=== PATIENT | female | born 1940 | race Caucasian/White ===

== ENCOUNTER → 2016-06-01 | Outpatient (CLI) | payer MEDICARE, OTHER ==
[~2016-06-01] MED LIST: CALCTAB80 PO; MULTCAP PO; SODITAB PO; VITA10007 PO; VITA60003 PO
== END ==
LOC: CPRE 10:53
PROVIDERS: ATTEND Optometrist Occupational Vision
DX: Z01.812 Encounter for preprocedural laboratory examination (principal); H25.812 Combined forms of age-related cataract, left eye

== ENCOUNTER → 2016-06-10 | Day surgery (SDC) | payer MEDICARE, OTHER ==
[~2016-06-10] VITALS: Ht 152.4 cm; Wt 80.8 kg
[~2016-06-10] MED LIST changes: +CYCLOPENTOLATE HCL 1% OPHT SOLN 2 ML BTL ONE; +FLURBIPROFEN 0.03% OPHT SOLN 2.5 ML BTL ONE; +LIDOCAINE HCL 1% 20 ML VIAL ONE; +LIDOCAINE HCL 1% 30 ML VIAL ONE; +LIDOCAINE HCL 2% JELLY 5 ML SYRINGE ONE; +LIDOCAINE HCL 2% JELLY 5 ML SYRINGE TOPICAL ONE; +MIDAZOLAM HCL 2 MG/2 ML VIAL ONE; +PHENYLEPHRINE HCL 10% OPTH SOLN 5 ML BTL ONE; +PROPARACAINE HCL 0.5% OPHT SOLN 15 ML BTL LEFT EYE ONE; +PROPARACAINE HCL 0.5% OPHT SOLN 15 ML BTL ONE; +SODIUM CHLORID 0.9% 500 ML INJ 500 ML ONE; +TROPICAMIDE 1% OPHT SOLN 15 ML BTL ONE
[2016-06-10 06:23] VITALS: BP 184/94; PULSE 64; RESP 16; TEMP 98.2; O2SAT 98
[2016-06-10] MEDS: TROPICAMIDE 1% OPHT SOLN 15 ML BTL LEFT EYE SCH ×4 (06:30→06:45)
[2016-06-10] MEDS: FLURBIPROFEN 0.03% OPHT SOLN 2.5 ML BTL LEFT EYE SCH ×4 (06:30→06:45)
[2016-06-10] MEDS: PHENYLEPHRINE HCL 10% OPTH SOLN 5 ML BTL LEFT EYE SCH ×4 (06:30→06:45)
[2016-06-10] MEDS: CYCLOPENTOLATE HCL 1% OPHT SOLN 2 ML BTL LEFT EYE SCH ×4 (06:30→06:45)
[2016-06-10] MEDS: TOBRAMYCIN/DEXAMETHASONE OPTH OINT 3.5 GM TUBE ONE ×2 (07:34→08:15)
[2016-06-10 09:10] VITALS: BP 160/74; PULSE 80; RESP 18; TEMP 98; O2SAT 99
--- NOTE | 2016-06-10 23:26 | MP ---
cc: WICHO NAIR M.D. [facility] #[id number] POSTOPERATIVE DIAGNOSIS: Visually significant cataract left eye. OPERATION: Phacoemulsification with posterior chamber lens implantation, left eye. SURGEON: Wicho Nair MD ANESTHESIA: Topical with MAC. COMPLICATIONS: None. PROCEDURE: After informed consent was obtained, the patient was brought into the operative suite and placed on appropriate monitors by the Anesthesia Service. The patient had been given dilating drops and topical lidocaine gel in the holding area. The patient's operative eye was then prepped and draped in the usual sterile fashion. A wire lid speculum was placed. Further 2% lidocaine was then dropped on the cornea prior to beginning the procedure. A paracentesis incision was made in the peripheral cornea with a 1 mm swetha keratome. The anterior chamber was filled with viscoelastic. The anterior chamber was then entered through a stepped, clear corneal incision using a sharp 3 mm swetha keratome. A circular tear capsulorrhexis was then made with a bent needle cystitome. Following hydrodissection of the lens nucleus with balance saline, phaco-emulsification of the nucleus was performed using a modified chopping technique. The remaining cortex was removed with irrigation/aspiration. The prior two procedures were both performed using the handpieces of the [employer] phaco unit. The capsular bag was then filled with viscoelastic. The intraocular lens was then injected into the capsular bag and positioned. The type of intraocular lens and its power can be found elsewhere in this chart. The remaining viscoelastic was then removed from the anterior chamber with the IA handpiece. The anterior chamber was reformed with balanced saline. The wound was then closed securely with stromal hydration. It was found to be watertight to an intraocular pressure of at least 30 mmHg by palpation. A small amount of balanced salt solution was then removed through the paracentesis site and the intraocular pressure at the end of the case was approximately 20 by palpation. All drapes were then removed. TobraDex ointment was then placed in the eye, which was closed beneath a semi-pressure patch dressing. The patient tolerated this procedure well and left the operating room awake and alert. The patient is to follow-up in my office in the morning. MD KANU Romero/ /10:04 AM /11:17 PM
== END | disposition home or self-care (01) ==
LOC: CSDC 05:46
PROVIDERS: ATTEND Optometrist Occupational Vision
DX: H25.812 Combined forms of age-related cataract, left eye (principal)
CPT/HCPCS: 00142; 66984; J2250; J7040; V2632

== ENCOUNTER → 2016-07-22 | Day surgery (SDC) | payer MEDICARE, OTHER ==
[~2016-07-22] VITALS: Ht 152.4 cm; Wt 80.0 kg
[~2016-07-22] MED LIST changes: -CYCLOPENTOLATE HCL 1% OPHT SOLN 2 ML BTL ONE; -FLURBIPROFEN 0.03% OPHT SOLN 2.5 ML BTL ONE; -LIDOCAINE HCL 1% 20 ML VIAL ONE; -LIDOCAINE HCL 1% 30 ML VIAL ONE; -LIDOCAINE HCL 2% JELLY 5 ML SYRINGE ONE; +LIDOCAINE HCL 2% JELLY 5 ML SYRINGE RIGHT EYE ONE; -LIDOCAINE HCL 2% JELLY 5 ML SYRINGE TOPICAL ONE; -PHENYLEPHRINE HCL 10% OPTH SOLN 5 ML BTL ONE; -PROPARACAINE HCL 0.5% OPHT SOLN 15 ML BTL LEFT EYE ONE; -PROPARACAINE HCL 0.5% OPHT SOLN 15 ML BTL ONE; +PROPARACAINE HCL 0.5% OPHT SOLN 15 ML BTL RIGHT EYE ONE; -SODITAB PO; -TROPICAMIDE 1% OPHT SOLN 15 ML BTL ONE
[2016-07-22 06:35] VITALS: BP 155/77; PULSE 63; RESP 16; TEMP 97.9; O2SAT 97
[2016-07-22] MEDS: TROPICAMIDE 1% OPHT SOLN 15 ML BTL RIGHT EYE SCH ×4 (06:45→07:00)
[2016-07-22] MEDS: PHENYLEPHRINE HCL 10% OPTH SOLN 5 ML BTL RIGHT EYE SCH ×4 (06:45→07:00)
[2016-07-22] MEDS: CYCLOPENTOLATE HCL 1% OPHT SOLN 2 ML BTL RIGHT EYE SCH ×4 (06:45→07:00)
[2016-07-22] MEDS: FLURBIPROFEN 0.03% OPHT SOLN 2.5 ML BTL RIGHT EYE SCH ×4 (06:45→07:00)
[2016-07-22] MEDS: LIDOCAINE HCL 1% 30 ML VIAL ONE ×2 (08:15→08:22)
[2016-07-22] MEDS: TOBRAMYCIN/DEXAMETHASONE OPTH OINT 3.5 GM TUBE ONE ×2 (08:16→08:32)
[2016-07-22 08:40] VITALS: TEMP 98.2
[2016-07-22 09:05] VITALS: BP 175/82; PULSE 75; RESP 14; O2SAT 97
--- NOTE | 2016-07-22 10:42 | MP ---
cc: WICHO NAIR M.D. DATE OF SURGERY: 07/22/2016 [facility] #: [id number] PREOPERATIVE DIAGNOSIS: Visually significant cataract right eye. POSTOPERATIVE DIAGNOSIS: Visually significant cataract right eye. OPERATION: Phacoemulsification with posterior chamber lens implantation, right eye. SURGEON: Wicho Nair MD ANESTHESIA: Topical with MAC. COMPLICATIONS: None. PROCEDURE: After informed consent was obtained, the patient was brought into the operative suite and placed on appropriate monitors by the Anesthesia Service. The patient had been given dilating drops and topical lidocaine gel in the holding area. The patient's operative eye was then prepped and draped in the usual sterile fashion. A wire lid speculum was placed. Further 2% lidocaine was then dropped on the cornea prior to beginning the procedure. A paracentesis incision was made in the peripheral cornea with a 1 mm swetha keratome. The anterior chamber was filled with viscoelastic. The anterior chamber was then entered through a stepped, clear corneal incision using a sharp 3 mm swetha keratome. A circular tear capsulorrhexis was then made with a bent needle cystitome. Following hydrodissection of the lens nucleus with balance saline, phacoemulsification of the nucleus was performed using a modified chopping technique. The remaining cortex was removed with irrigation/aspiration. The prior two procedures were both performed using the handpieces of the [employer] phaco unit. The capsular bag was then filled with viscoelastic. The intraocular lens was then injected into the capsular bag and positioned. The type of intraocular lens and its power can be found elsewhere in this chart. The remaining viscoelastic was then removed from the anterior chamber with the IA handpiece. The anterior chamber was reformed with balanced saline. The wound was then closed securely with stromal hydration. It was found to be watertight to an intraocular pressure of at least 30 mmHg by palpation. A small amount of balanced salt solution was then removed through the paracentesis site and the intraocular pressure at the end of the case was approximately 20 by palpation. All drapes were then removed. TobraDex ointment was then placed in the eye, which was closed beneath a semi-pressure patch dressing. The patient tolerated this procedure well and left the operating room awake and alert. The patient is to follow-up in my office in the morning. MD KANU Romero/ALEISHA /10:09 AM /10:40 AM
== END | disposition home or self-care (01) ==
LOC: CSDC 05:55
PROVIDERS: ATTEND Optometrist Occupational Vision
DX: H25.811 Combined forms of age-related cataract, right eye (principal)
CPT/HCPCS: 00142; 66984; J2250; J7040; V2632